=== PATIENT | male | born 1955 | race Caucasian/White ===

== ENCOUNTER → 2021-04-15 | Outpatient (CLI) | payer MEDICARE ==
[~2021-04-15] MED LIST: PROHANCE 279.3MG/ML 15ML VIAL As Ordered ONE
--- NOTE | 2021-04-15 12:54 | REP ---
INDICATION: ELEVATED PSA. COMPARISON: No comparison study. TECHNIQUE: Using a phased array surface coil, small wwccw-nv-qeoz imaging was acquired using T2 weighted scans in the axial, coronal, and sagittal imaging planes. Small jzbhb-pi-urmm diffusion-weighted sequences are acquired. Small wxetk-df-fjrr axial T1 weighted scans are acquired dynamically before and after the intravenous administration of 12 mL of ProHance. Imaging is reviewed using the [employer] computer-aided detection system. FINDINGS: Cortical and medullary bone signal intensity are normal in the visualized bony pelvis. There is a small benign bone island in the right iliac bone. There is no evidence of pelvic or inguinal lymphadenopathy. Urinary bladder duong are somewhat trabeculated. Seminal vesicles are unremarkable and symmetric. There is no evidence of extraprostatic disease. There is moderate nodular enlargement of the central gland in the prostate. Overall prostate dimensions are 5.3 x 4.7 x 4.6 cm, calculated volume 64.2 mL. There are 2 areas of interest identified which are submitted for ultrasound/MR fusion directed biopsy consideration. The 1st region of interest is in the right mid posterior transition zone. A area of poorly defined low T2 signal is seen measuring 1.2 x 0.9 x 1.4 cm, calculated volume 0.7 mL. This shows ill-defined low signal on diffusion weighted ADC and no hypervascularity on postcontrast study. PI-RADS score 3 of 5. The 2nd region of interest is in the left apicoposterior transition zone measuring 1.1 x 1.0 x 1.4 cm, 0.6 mL. This is a well defined low T2 signal intensity nodule with type 3 enhancement and washout curve and some decrease in ADC signal on diffusion-weighted scans. BI-RADS category 3 of 5. IMPRESSION: Multiparametric prostate MRI findings as above. Two targets are identified and submitted for consideration of MR/ultrasound fusion guided needle biopsy. No evidence of extraprostatic disease. There is moderate nodular enlargement of the central gland consistent with BPH. <Electronically signed by Marcio Huffman > 04/15/21 [id number]
== END ==
LOC: M RAD 09:42
PROVIDERS: ATTEND Specialist
DX: R97.20 Elevated prostate specific antigen [PSA] (principal)
CPT/HCPCS: 72197; A9576

== ENCOUNTER → 2023-07-05 | Outpatient (CLI) | payer MEDICARE | LOC: M PLAIMG 14:37 | PROVIDERS: ATTEND Physician Assistant | DX: R97.20 Elevated prostate specific antigen [PSA] (principal) ==

== ENCOUNTER → 2024-11-16 | Outpatient (CLI) | payer MEDICARE ==
[~2024-11-16] MED LIST changes: -PROHANCE 279.3MG/ML 15ML VIAL As Ordered ONE; +PROHANCE 279.3MG/ML 15ML VIAL ONE
== END ==
LOC: M PLAIMG 11:17
PROVIDERS: ATTEND Physician Assistant
DX: C61 Malignant neoplasm of prostate (principal)
CPT/HCPCS: 72197; A9576